=== PATIENT | female | born 1960 | race Caucasian/White ===

== ENCOUNTER 2023-08-27 12:48 | Emergency (ER) | payer OTHER, SELFPAY ==
[2023-08-27 12:50] VITALS: BP 163/65
[2023-08-27 13:13] LABS: % Basophils 0.8 % (0-2); % Eosinophils 2.6 % (0-6); % Immature Granulocytes 0.4 % (0-0.5); % Lymphocytes 29.2 % (20.5-51.1); % Monocytes 7.9 % (1.7-9.3); % Neutrophils 59.1 % (42.2-75.2); Absolute Basophils 0.1 10^3/uL (0-0.2); Absolute Eosinophils 0.2 10^3/uL (0-0.7); Absolute Lymphocytes 2.3 10^3/uL (1.2-3.4); Absolute Monocytes 0.6 10^3/uL (0.1-0.6); Absolute Neutrophils 4.7 10^3/uL (1.4-6.5); Hematocrit 41.2 % (37.0-47.0); Hemoglobin 14.2 g/dL (12.0-16.0); Mean Corp Hgb Conc. 34.5 g/dL (33.0-37.0); Mean Corpuscular Hgb 29.3 pg (27.0-31.0); Mean Corpuscular Volume 84.9 fL (81.0-99.0); Mean Platelet Volume 8.7 fL (7.4-10.4); Nucleated Red Blood Cells % 0 %; Platelet Count 391 10^3/uL (130-400); Red Blood Cell Count 4.85 10^6/uL (4.20-5.40); Red Cell Dist. Width 12.5 % (11.5-14.5)
[2023-08-27 13:30] LABS: ALT (SGPT) 34 U/L (0-35); AST (SGOT) 27 U/L (14-36); Albumin 4.6 g/dl (3.5-5.0); Alkaline Phosphatase 100 U/L (38-126); Blood Urea Nitrogen 21 mg/dl (7-17); Calcium 10.6 mg/dl (8.4-10.2); Carbon Dioxide 28 mmol/L (22-30); Chloride 103 mmol/L (98-107); Glucose 85 mg/dl (70-99); Lipase 120 U/L (23-300); Potassium 4.7 mmol/L (3.5-5.1); Sodium 137 mmol/L (135-145); Total Bilirubin 0.6 mg/dl (0.2-1.3); eGFR > 60.00
[2023-08-27] MEDS: NSS 1000 IV (16:29)
[2023-08-27 16:30] VITALS: BMI 29.0
--- NOTE | 2023-08-27 16:46 | ED.GENMED ---
History of Present Illness
General
Chief Complaint: Abdominal Symptoms
Time Seen by Provider: 08/27/23 15:36
Travel History
Have you had any contact with someone who has COVID-19?: No
Do you have any symptoms of coronavirus? Fever > 100 degrees, chills, cough, shortness of breath, sore throat, loss of taste or smell, muscle aches, or headache?: No
History of Present Illness
History of Present Illness:
62-year-old female presents the emergency department for evaluation of persistent diarrhea for the past 4 days. She notes that she had nausea and vomiting for the first 1 to 2 days of symptoms but this is resolved. She is began to feel dizzy and
lightheaded. Denies any antibiotic usage in the past 90 days. Currently denies any abdominal pain, chest pain, or fevers. No ill contacts at home.
Past History
Past History
ED Past Medical History: HTN, Hypercholesterolemia and NIDDM
ED Past Surgical History:
Review of Systems
Review of Systems
Allergies reviewed?: Yes
All Other Systems: ROS reviewed and negative except as documented in HPI and ROS
Phy Exam
Physical Exam
Physical Exam:
GEN: Well appearing, NAD, WDWN
HEENT: Oral mucosa moist, no scleral icterus
Cardiac: Regular rate
Lung: No respiratory distress, no tachypnea
Abdomen: Soft, nontender, no rigidity
MSK: No gross deformity or injuries
Skin: Good color, no pallor or jaundice, no rashes
Neuro: AO x3, moves all extremities freely
Psych: Calm, cooperative
Course
Orders/Labs/Results
Orders:
Orders
08/27/23 13:04
Complete Blood Count/With Diff Urgent
Comprehensive Metabolic Panel Urgent
Lipase Urgent
08/27/23 16:16
0.9% Sodium Chloride 1000 ml [Nss] 1,000 ml IV BOLUS
Abnormal Lab Results
08/27/23
13:04
BUN 21 H mg/dl
(7-17)
Creatinine 0.5 L mg/dL
(0.6-1.0)
Calcium 10.6 H mg/dl
(8.4-10.2)
08/27/23 13:04
08/27/23 13:04
Vital Signs
Initial and Last Documented VS:
Initial Vital Signs
Temp Pulse Resp BP Pulse Ox
98.4 F 56 18 163/65 100
08/27/23 12:50 08/27/23 12:50 08/27/23 12:50 08/27/23 12:50 08/27/23 12:50
Last Documented Vital Signs
Temp Pulse Resp BP Pulse Ox
98.0 F 66 20 152/74 99
08/27/23 18:43 08/27/23 18:43 08/27/23 18:43 08/27/23 18:43 08/27/23 18:43
MDM/Problems Addressed
MDM/Problems Addressed:
61-year-old female presenting with persistent diarrhea. Her labs are reassuring and there are no electrolyte derangements. She was given 1 L normal saline in the emergency department with improvement in dizziness. She was unable to provide a
stool specimen for sampling, ultimately do not feel this is prudent at this time given duration of symptoms less than 1 week.
*Critical Care Note
Total Time (30-74mins, 75-104mins- exclusive of procedures): Not Applicable
ED Attending Note
-
Portions of this chart may have been created with voice recognition software.� Occasional wrong word or��sound alike� substitutions may have occurred due to the inherent limitations of voice recognition software.
Discharge Plan
Departure
Patient Disposition: Home (Routine Discharge)
Date of Disposition: 08/27/23
Time of Disposition: 17:39
Patient with high blood pressure during this ER visit?: No
Discharge Problem:
Gastroenteritis
Instructions: Viral gastroenteritis in adults
Prescriptions:
No Action
atorvastatin 40 MG tablet
40 mg PO QPM
magnesium oxide [MagOx] 400 MG tablet
400 mg PO DAILY
lisinopril [Zestril] 40 MG tablet
40 mg PO DAILY
metformin 500 MG tablet extended release 24 hr
1,000 mg PO BID
glipizide 5 MG tablet
5 mg PO DAILY
metoprolol tartrate 25 MG tablet
25 mg PO BID
biotin 10,000 mcg Capsule
10,000 mcg PO DAILY
Ozempic 0.25 mg or 0.5 mg (2 mg/3 mL) Pen Injector
0.5 mg SC MO
acetaminophen [Tylenol] 325 mg Tablet
650 mg PO Q4H PRN (Reason: moderate pain)
potassium citrate 15 mEq Tablet Extended Release
1,620 mg PO BID
tamsulosin [Flomax] 0.4 mg Capsule
0.4 mg PO DAILY Qty: 7 0RF
ondansetron 4 mg Tablet,Disintegrating
4 mg PO TIDPRN PRN (Reason: nausea/vomiting) Qty: 12 0RF
Referrals:
Erick Castrejon DO [Family Provider] -
Activity Restrictions/Additional Instructions:
If your diarrhea continues to worsen for greater than 1 week, stool testing for pathogens would be indicated. Your primary care physician can order these
Be sure to increase your oral fluid intake
We recommend a brat diet which includes bananas, rice, applesauce, and toast.
Interventions
Interventions:
*Risk Screen - Suicide Last Done: 08/27/23 12:50
*General Assessment Last Done: 08/27/23 12:50
*Neglect/Abuse Screening Last Done: 08/27/23 12:50
ED- Fall Risk Assessment Last Done: 08/27/23 18:36
*ED COVID-19 Vaccine History Last Done: 08/27/23 12:50
*Nursing Disposition Last Done: 08/27/23 18:43
VD-Xtmfwx-Nkncrzxvdk Assessment Last Done: 08/27/23 18:34
Discharge Date and Time
Discharge Date/Time: 08/27/23 18:47
Print Language: ITALIAN
[2023-08-27 18:43] VITALS: BP 152/74
== END 2023-08-27 18:47 | disposition home or self-care (01) ==
LOC: EMR 12:48
PROVIDERS: Emergency Medicine; EMERGENCY PHYSICIAN Emergency Medicine; FAMILY PHYSICIAN Family Medicine
DX: K52.9 Noninfective gastroenteritis and colitis, unspecified (principal); I10 Essential (primary) hypertension
CPT/HCPCS: 99284; 96360; 80053; 83690; 85025

== ENCOUNTER → 2023-11-22 12:13 | Outpatient (REF) | payer OTHER, SELFPAY | LOC: RAD 12:13 | PROVIDERS: ATTENDING PHYSICIAN Family Medicine | DX: Z78.0 Asymptomatic menopausal state (principal); Z00.00 Encounter for general adult medical examination without abnormal findings; R05.9 Cough, unspecified; M25.551 Pain in right hip; R10.2 Pelvic and perineal pain | CPT/HCPCS: 71046; 72100; 72170; 73502; 77080 ==

== ENCOUNTER → 2023-12-16 08:31 | Outpatient (REF) | payer OTHER, SELFPAY | LOC: RAD 08:31 | PROVIDERS: ATTENDING PHYSICIAN Internal Medicine Gastroenterology; FAMILY PHYSICIAN Family Medicine | DX: R94.5 Abnormal results of liver function studies (principal) | CPT/HCPCS: 76700 ==

== ENCOUNTER 2024-12-07 22:06 | Emergency (ER) | payer OTHER, SELFPAY ==
[2024-12-07 22:08] VITALS: BP 174/96
--- NOTE | 2024-12-07 22:35 | ED.GENMED ---
History of Present Illness
General
Chief Complaint: Flank Pain
Source: patient and family
Exam Limitations: none
Time Seen by Provider: 12/07/24 22:21
Nursing documentation reviewed up to this point in time: agreed with
History of Present Illness
History of Present Illness:
Patient with history of kidney stones, presents to ED secondary to recurrent right flank pain with vomiting, and approxi-1 hour prior to arrival. Denies fever or chills. Denies trauma. Denies diarrhea. Denies difficulty with urination. Patient
states that her last episode of kidney stone was approximately 2 years ago, requiring lithotripsy.
Past History
Past History
ED Past Medical History: HTN, Hypercholesterolemia and NIDDM
ED Past Surgical History:
Review of Systems
Review of Systems
Allergies reviewed?: Yes
All Other Systems: ROS reviewed and negative except as documented in HPI and ROS
Constitutional: Reports no symptoms; Denies fever
ABD/GI: Reports nausea and vomiting; Denies abdominal pain or diarrhea
: Reports flank pain; Denies difficulty voiding
Musculoskeletal: Reports no symptoms
Skin: Reports no symptoms
Neurological: Reports no symptoms
Phy Exam
Physical Exam
Physical Exam:
Physical Exam
General: moderate painful distress, not acutely ill. afebrile
Head: nc/at. eomi
Neck: supple. normal range of motion
Abdomen: normal bowel sounds. not tender.
Neuro: alert and oriented x 3. no focal neurological deficits
Skin: no rash
Psychiatric: well kept. interactive and cooperative
Extremities: no edema. no calf tenderness.
Course
Orders/Labs/Results
Orders:
Orders
12/07/24 22:35
0.9% Sodium Chloride 500 ml [Nss] 500 ml IV BOLUS
HYDROmorphone [Dilaudid] 0.5 mg IV NOW STA
Ketorolac [Toradol] 15 mg IV NOW STA
Ondansetron Injectable [Zofran] 4 mg IV NOW STA
12/07/24 22:36
CT Abd/pel Without Iv Or Oral Urgent
Comment:
Reason For Exam: right flank pain
12/07/24 22:47
Basic Metabolic Panel Urgent
Complete Blood Count/With Diff Urgent
12/08/24 00:44
HYDROmorphone [Dilaudid] 0.5 mg .ROUTE .STK-MED ONE
12/08/24 00:46
HYDROmorphone [Dilaudid] 0.5 mg IV NOW STA
Abnormal Lab Results
12/07/24
22:47
Absolute Monos (auto) 0.7 H 10^3/uL
(0.1-0.6)
BUN 18 H mg/dl
(7-17)
Glucose 164 H mg/dl
(70-99)
12/07/24 22:47
12/07/24 22:47
Vital Signs
Initial and Last Documented VS:
Initial Vital Signs
Temp Pulse Resp BP Pulse Ox
98.2 F 69 20 174/96 97
12/07/24 22:08 12/07/24 22:08 12/07/24 22:08 12/07/24 22:08 12/07/24 22:08
Last Documented Vital Signs
Temp Pulse Resp BP Pulse Ox
98.2 F 60 16 138/56 95
12/07/24 22:08 12/08/24 00:45 12/07/24 23:25 12/08/24 00:00 12/08/24 00:45
MDM/Problems Addressed
MDM/Problems Addressed:
Patient reports significant improvement in symptoms after treatment.
CT report reviewed and discussed with patient and family. History and exam consistent with obstructing renal stone. Fortunately, patient remains afebrile, hemodynamically stable, nontoxic-appearing. Patient will be discharged home with pain
medication along with urine strainer, along with recommendation to follow-up with her primary urologist, Dr. Dr. Shah. Advised to return to ED with worsening symptoms, i.e. fever/worsening pain/inability urinate. Patient expresses understanding
at time of discharge.
*Pulse Oximetry
SaO2: 97
Oxygen Mode of Delivery: Room air
Patient hypoxic: no
*Critical Care Note
Total Time (30-74mins, 75-104mins- exclusive of procedures): Not Applicable
ED Attending Note
-
Portions of this chart may have been created with voice recognition software.� Occasional wrong word or��sound alike� substitutions may have occurred due to the inherent limitations of voice recognition software.
Discharge Plan
Departure
Patient Disposition: Home (Routine Discharge)
Date of Disposition: 12/08/24
Time of Disposition: 00:41
Patient with high blood pressure during this ER visit?: Yes
Condition: Fair
Discharge Problem:
Renal colic
Instructions: Renal Colic (DC), How to Strain Your Urine
Prescriptions:
New
oxycodone-acetaminophen [Percocet] 5-325 mg Tablet
1 tab PO Q6HPRN PRN (Reason: pain) Qty: 12 0RF
tamsulosin [Flomax] 0.4 mg Capsule
0.4 mg PO DAILY Qty: 7 0RF
ondansetron 4 mg Tablet,Disintegrating
4 mg PO TIDPRN PRN (Reason: nausea/vomiting) Qty: 12 0RF
No Action
atorvastatin 40 MG tablet
40 mg PO QPM
magnesium oxide [MagOx] 400 MG tablet
400 mg PO DAILY
lisinopril [Zestril] 40 MG tablet
40 mg PO DAILY
metformin 500 MG tablet extended release 24 hr
1,000 mg PO BID
glipizide 5 MG tablet
5 mg PO DAILY
metoprolol tartrate 25 MG tablet
25 mg PO BID
biotin 10,000 mcg Capsule
10,000 mcg PO DAILY
Ozempic 0.25 mg or 0.5 mg (2 mg/3 mL) Pen Injector
0.5 mg SC MO
acetaminophen [Tylenol] 325 mg Tablet
650 mg PO Q4H PRN (Reason: moderate pain)
potassium citrate 15 mEq Tablet Extended Release
1,620 mg PO BID
tamsulosin [Flomax] 0.4 mg Capsule
0.4 mg PO DAILY Qty: 7 0RF
ondansetron 4 mg Tablet,Disintegrating
4 mg PO TIDPRN PRN (Reason: nausea/vomiting) Qty: 12 0RF
Referrals:
Erick Castrejon DO [Family Provider, Family Practice]
Lauro Shah MD [Active, Urology]
Activity Restrictions/Additional Instructions:
As discussed, please follow-up with your urologist for further evaluation and treatment. Please return to ED with worsening symptoms, i.e. fever/worsening pain/inability to urinate. Your prescriptions have been [facility] electronically [facility]
pharmacy in [place].
Interventions
Interventions:
*Risk Screen - Suicide Last Done: 12/07/24 22:08
*General Assessment Last Done: 12/07/24 22:08
*Neglect/Abuse Screening Last Done: 12/07/24 22:08
*ED- Fall Risk Assessment Last Done: 12/07/24 23:10
*ED COVID-19 Vaccine History Last Done: 12/07/24 22:08
*Nursing Disposition Last Done: 12/08/24 01:04
TR-Zeurew-Pwqzythnos Assessment Last Done: 12/07/24 22:51
ED-Female Genitourinary Assessment Last Done: 12/07/24 22:51
Discharge Date and Time
Discharge Date/Time: 12/08/24 01:04
Print Language: MACEDONIAN
[2024-12-07] MEDS: NSS 500 IV (22:45)
[2024-12-07] MEDS: ZOFRAN 4 MG IV (22:46)
[2024-12-07] MEDS: TORADOL 15 MG IV (22:46)
[2024-12-07] MEDS: DILAUDID 0.5 MG IV (22:47)
[2024-12-07 22:49] VITALS: BP 170/60
[2024-12-07 22:50] VITALS: BMI 26.1
[2024-12-07 23:22] VITALS: BP 172/63
[2024-12-07 23:25] VITALS: BP 172/63
[2024-12-07 23:33] LABS: Hematocrit 39.3 % (37.0-47.0); Hemoglobin 13.3 g/dL (12.0-16.0); Mean Corp Hgb Conc. 33.8 g/dL (33.0-37.0); Mean Corpuscular Volume 85.4 fL (81.0-99.0); Nucleated Red Blood Cells % 0 %; Platelet Count 335 10^3/uL (130-400); Red Cell Dist. Width 12.4 % (11.5-14.5)
[2024-12-08] VITALS: BP 138/56
[2024-12-08 00:04] LABS: Blood Urea Nitrogen 18 mg/dl (7-17); Calcium 10.0 mg/dl (8.4-10.2); Carbon Dioxide 26 mmol/L (22-30); Chloride 106 mmol/L (98-107); Estimated Creatinine Clearance 68 ml/min; Glucose 164 mg/dl (70-99); Potassium 4.9 mmol/L (3.5-5.1); Sodium 140 mmol/L (135-145); eGFR > 60.00
[2024-12-08] MEDS: DILAUDID 0.5 MG IV (00:47)
== END 2024-12-08 01:04 | disposition home or self-care (01) ==
LOC: EMR 22:06
PROVIDERS: EMERGENCY PHYSICIAN Emergency Medicine; FAMILY PHYSICIAN Family Medicine
DX: N13.2 Hydronephrosis with renal and ureteral calculous obstruction (principal); I10 Essential (primary) hypertension; E11.9 Type 2 diabetes mellitus without complications; E78.00 Pure hypercholesterolemia, unspecified; Z87.442 Personal history of urinary calculi
CPT/HCPCS: 99284; 96374; 96375; 96376; 96361; 74176; 80048; 85025

== ENCOUNTER 2025-01-25 15:17 | Emergency (ER) | payer OTHER, SELFPAY ==
[2025-01-25 15:25] VITALS: BP 129/62
[2025-01-25 15:46] VITALS: BMI 26.6
[2025-01-25 15:47] VITALS: BP 121/59
[2025-01-25 15:55] LABS: Urine Character Clear (Clear)
[2025-01-25 16:47] LABS: Hematocrit 42.0 % (37.0-47.0); Hemoglobin 14.0 g/dL (12.0-16.0); Mean Corp Hgb Conc. 33.3 g/dL (33.0-37.0); Mean Corpuscular Volume 85.5 fL (81.0-99.0); Nucleated Red Blood Cells % 0 %; Platelet Count 408 10^3/uL (130-400); Red Cell Dist. Width 12.4 % (11.5-14.5)
[2025-01-25 17:02] VITALS: BP 107/56
[2025-01-25 17:02] LABS: ALT (SGPT) 30 U/L (0-35); AST (SGOT) 25 U/L (14-36); Albumin 4.8 g/dl (3.5-5.0); Alkaline Phosphatase 102 U/L (38-126); Blood Urea Nitrogen 27 mg/dl (7-17); Calcium 10.9 mg/dl (8.4-10.2); Carbon Dioxide 27 mmol/L (22-30); Chloride 102 mmol/L (98-107); Estimated Creatinine Clearance 66 ml/min; Glucose 89 mg/dl (70-99); Lipase 194 U/L (23-300); Potassium 5.2 mmol/L (3.5-5.1); Sodium 138 mmol/L (135-145); Total Protein 7.4 g/dl (6.3-8.2); eGFR > 60.00
[2025-01-25 17:13] LABS: Troponin I < 0.012 ng/ml
--- NOTE | 2025-01-25 17:14 | ED.GENMED ---
History of Present Illness
<Mackenzie Villa LIFE SPECIALIST - Last Filed: 01/25/25 18:27>
General
Chief Complaint: Fatigue
Source: patient
Exam Limitations: none
Time Seen by Provider: 01/25/25 16:08
Nursing documentation reviewed up to this point in time: agreed with
History of Present Illness
History of Present Illness:
64 yo female with h/o diabetic neuropathy, degenerative disc disease, HTN, HLD, GERD, kidney stones, NIDDM, anxiety has been on Ozempic for 3 years at 0.5 mg and was increased to 1.0 mg 4 weeks ago presents with:
Nausea off and on for the past 2 weeks during the day
Diarrhea 3 times a week for past 2 weeks
Abdominal pain which is around her bellybutton at times and in her lower abdomen at other times which is worse at night. Occasional abdominal bloating where 'it sticks out' Sometimes eating relieves symptoms, sometimes makes them
worse.
Mid to upper bilateral back pain at night for the past 2 weeks. Does not coincide with abdominal symptoms. Describes the back pain as a 'freezing tightening' 2 times a day and it resolves after she sits and rests and does some stretching exercises.
Also has 'extreme fatigue' 'so overwhelming I can't function.'
She saw her GI Dr. Her at [facility] 2 weeks ago and has f/u appt in March. She was told it might be the Ozempic. She has Zofran at home which helps her nausea.
She called her PCP Dr. Castrejon who could see her Tuesday (3 days) but she did not want to wait.
Past History
<Mackenzie Villa LIFE SPECIALIST - Last Filed: 01/25/25 18:27>
Past History
ED Past Medical History: GERD, HTN, Hypercholesterolemia and NIDDM
ED Past Surgical History: Bowel resection, , Gynecological and Urological (Stent for kidney stones)
Social History
Tobacco: Non-smoker
Alcohol: None
Personal:
Living: with family
Review of Systems
<Mackenzie Villa, LIFE SPECIALIST - Last Filed: 01/25/25 18:27>
Review of Systems
Allergies reviewed?: Yes
All Other Systems: ROS reviewed and negative except as documented in HPI and ROS
Constitutional: Reports fatigue; Denies fever or chills
EENT: Denies sore throat
Respiratory: Denies cough or trouble breathing
Cardiac: Denies chest pain or syncope
ABD/GI: Reports abdominal pain, nausea and diarrhea; Denies vomiting, constipated, bloody stools or black stools
: Denies dysuria, frequency or difficulty voiding
Musculoskeletal: Reports back pain (Mid to upper back pain)
Skin: Reports no symptoms
Neurological: Reports no symptoms
Phy Exam
<Mackenzie Villa, LIFE SPECIALIST - Last Filed: 01/25/25 18:27>
Physical Exam
Physical Exam:
GENERAL: No acute distress. A&Ox3.
CONSTITUTIONAL: Afebrile.
EYES: clear, conjunctivae normal
ENMT: moist mucus membranes, Pharynx nl
RESPIRATORY: Regular respirations, nonlabored, lungs clear.
CARDIOVASCULAR: Regular rate and rhythm, no murmurs, no rubs.
GI: Soft, nondistended, nontender, normal BS
MUSCULOSKELETAL: Moves with ease. Well perfused.
SKIN: Warm, dry, pink
PSYCH: Normal mood and affect. Well kept, interactive and appropriate
NEUROLOGIC: Awake, alert and oriented. No focal neurological deficits
Course
<Mackenzie Villa, LIFE SPECIALIST - Last Filed: 01/25/25 18:27>
Orders/Labs/Results
Orders:
Orders
01/25/25 15:29
Electrocardiogram (*1) Urgent
Reason for Study: Fatigue / Weakness
EKG- Treatment ONCE
01/25/25 15:36
Urinalysis Reflex To Culture Urgent
Date Specimen was Collected: 01/25/25
Time Specimen was Collected: 15:31
Urine Microscopic Reflex Cult Urgent
Urine Culture Urgent
CELSA Source: U
Specimen Description:
Date Specimen was Collected: 01/25/25
Time Specimen was Collected: 15:31
01/25/25 16:27
CT Abd/pelvis W Iv Cont Urgent
Comment:
Reason For Exam: abd pain, on Ozempic
01/25/25 16:39
CBC/With Diff [Complete Blood Count/With Diff] Urgent
Comprehensive Metabolic Panel Urgent
Lipase Urgent
Troponin I Urgent
01/25/25 17:15
0.9% Sodium Chloride 1000 ml [Nss] 1,000 ml IV BOLUS
01/25/25 17:35
COVID-19 Antigen Urgent
Source: Nasal Swab
Abnormal Lab Results
01/25/25 01/25/25
15:36 16:39
Plt Count 408 H 10^3/uL
(130-400)
Absolute Neuts (auto) 7.4 H 10^3/uL
(1.4-6.5)
Absolute Monos (auto) 0.7 H 10^3/uL
(0.1-0.6)
Potassium 5.2 H mmol/L
(3.5-5.1)
BUN 27 H mg/dl
(7-17)
Calcium 10.9 H mg/dl
(8.4-10.2)
Ur Occult Blood Reflex 1+ A
(Negative)
Leukocyte Esterase Rfl 3+ A
(Negative)
Urine WBC (Reflex) 50-60 A /HPF
(0-5)
Urine Bacteria (Reflex) Moderate A
(Negative)
Urine Albumin (Reflex) 2+ A
(Neg - Trace)
01/25/25 16:39
01/25/25 16:39
Vital Signs
Initial and Last Documented VS:
Initial Vital Signs
Temp Pulse Resp BP Pulse Ox
97.8 F 69 16 129/62 99
01/25/25 15:25 01/25/25 15:25 01/25/25 15:25 01/25/25 15:25 01/25/25 15:25
Last Documented Vital Signs
Temp Pulse Resp BP Pulse Ox
97.8 F 64 15 135/58 97
01/25/25 15:25 01/25/25 18:30 01/25/25 18:30 01/25/25 18:00 01/25/25 17:15
<Camron Orta PA-C - Last Filed: 01/25/25 19:00>
Orders/Labs/Results
Orders:
Orders
01/25/25 15:29
Electrocardiogram (*1) Urgent
Reason for Study: Fatigue / Weakness
EKG- Treatment ONCE
01/25/25 15:36
Urinalysis Reflex To Culture Urgent
Date Specimen was Collected: 01/25/25
Time Specimen was Collected: 15:31
Urine Microscopic Reflex Cult Urgent
Urine Culture Urgent
CELSA Source: U
Specimen Description:
Date Specimen was Collected: 01/25/25
Time Specimen was Collected: 15:31
01/25/25 16:27
CT Abd/pelvis W Iv Cont Urgent
Comment:
Reason For Exam: abd pain, on Ozempic
01/25/25 16:39
CBC/With Diff [Complete Blood Count/With Diff] Urgent
Comprehensive Metabolic Panel Urgent
Lipase Urgent
Troponin I Urgent
01/25/25 17:15
0.9% Sodium Chloride 1000 ml [Nss] 1,000 ml IV BOLUS
01/25/25 17:35
COVID-19 Antigen Urgent
Source: Nasal Swab
Abnormal Lab Results
01/25/25 01/25/25
15:36 16:39
Plt Count 408 H 10^3/uL
(130-400)
Absolute Neuts (auto) 7.4 H 10^3/uL
(1.4-6.5)
Absolute Monos (auto) 0.7 H 10^3/uL
(0.1-0.6)
Potassium 5.2 H mmol/L
(3.5-5.1)
BUN 27 H mg/dl
(7-17)
Calcium 10.9 H mg/dl
(8.4-10.2)
Ur Occult Blood Reflex 1+ A
(Negative)
Leukocyte Esterase Rfl 3+ A
(Negative)
Urine WBC (Reflex) 50-60 A /HPF
(0-5)
Urine Bacteria (Reflex) Moderate A
(Negative)
Urine Albumin (Reflex) 2+ A
(Neg - Trace)
01/25/25 16:39
01/25/25 16:39
Vital Signs
Initial and Last Documented VS:
Initial Vital Signs
Temp Pulse Resp BP Pulse Ox
97.8 F 69 16 129/62 99
01/25/25 15:25 01/25/25 15:25 01/25/25 15:25 01/25/25 15:25 01/25/25 15:25
Last Documented Vital Signs
Temp Pulse Resp BP Pulse Ox
97.8 F 64 15 135/58 97
01/25/25 15:25 01/25/25 18:30 01/25/25 18:30 01/25/25 18:00 01/25/25 17:15
<Mackenzie Huggins Day, LIFE SPECIALIST - Last Filed: 01/25/25 18:27>
MDM/Problems Addressed
Differential Diagnosis Includes:
Side effect from Ozempic, dehydration, COVID, UTI
MDM/Problems Addressed:
64 yo female with h/o diabetic neuropathy, degenerative disc disease, HTN, HLD, GERD, kidney stones, NIDDM, anxiety has been on Ozempic for 3 years at 0.5 mg and was increased to 1.0 mg 4 weeks ago presents with:
Nausea off and on for the past 2 weeks during the day
Diarrhea 3 times a week for past 2 weeks
Abdominal pain which is around her bellybutton at times and in her lower abdomen at other times which is worse at night. Occasional abdominal bloating where 'it sticks out' Sometimes eating relieves symptoms, sometimes makes them
worse.
Mid to upper bilateral back pain at night for the past 2 weeks. Does not coincide with abdominal symptoms. Describes the back pain as a 'freezing tightening' 2 times a day and it resolves after she sits and rests and does some stretching exercises.
EKG NSR
She saw her GI Dr. Her at [facility] 2 weeks ago and has f/u appt in March. She was told it might be the Ozempic. She has Zofran at home which helps her nausea.
She called her PCP Dr. Castrejon who could see her Tuesday (3 days) but she did not want to wait.
5:30 PM:
CBC with no clinically significant
CMP: No clinically significant abnormality. IV fluids infusing for mild dehydration with a BUN of 27
Troponin WNL
UA: +1 blood, 3+ leukocytes, 50-60 WBCs greater than 30 squames, moderate bacteria, urine culture pending. Patient states she sees Dr. Shah, urology and states she always has white blood cells in her urine
6:30 p.m.
Covid neg
Discussed all finding so far with pt who expresses relief at negative workup so far
Case discussed with Perez Orta who will assume care from this point. CT abd/pelvis result pending.
<Mackenzie Villa LIFE SPECIALIST - Last Filed: 01/25/25 18:27>
*Pulse Oximetry
SaO2: 99
Oxygen Mode of Delivery: Room air
*EKG
EKG Intrepretation Date: 01/25/25
Interpretation: normal
Heart Rate: 65
Rate: normal
Rhythm: sinus
Mondamin: normal axis
Interval: normal interval
QRS Pattern: normal QRS
Ischemia: no ischemia
<Camron Orta PA-C - Last Filed: 01/25/25 19:00>
*Pulse Oximetry
Patient hypoxic: no
*Critical Care Note
Total Time (30-74mins, 75-104mins- exclusive of procedures): Not Applicable
<Camron Orta PA-C - Last Filed: 01/25/25 19:00>
Update Note
Update Note:
Received care of patient upon signout pending abdominal CT. Abdominal CT was reviewed and demonstrates mild distention of the proximal right ureter without evidence ureteral calculus or perinephric stranding. There are intrarenal calculi however.
No other acute finding noted in the abdomen. Patient be stable for discharge with follow-up with family doctor and discuss current dose of her peptide medications to take
ED Attending Note
<Mackenzie Villa LIFE SPECIALIST - Last Filed: 01/25/25 18:27>
-
Portions of this chart may have been created with voice recognition software.� Occasional wrong word or��sound alike� substitutions may have occurred due to the inherent limitations of voice recognition software.
Discharge Plan
Departure
Patient Disposition: Home (Routine Discharge)
Date of Disposition: 01/25/25
Time of Disposition: 18:51
Patient with high blood pressure during this ER visit?: No
Condition: Good
Discharge Problem:
Abdominal pain, Fatigue, Upper back pain
Instructions: Fatigue (DC), Exercises for Upper Back Pain, Abdominal Pain, Musculoskeletal Pain
Prescriptions:
No Action
atorvastatin 40 MG tablet
40 mg PO QPM
magnesium oxide [MagOx] 400 MG tablet
400 mg PO DAILY
lisinopril [Zestril] 40 MG tablet
40 mg PO DAILY
metformin 500 MG tablet extended release 24 hr
1,000 mg PO BID
glipizide 5 MG tablet
5 mg PO DAILY
metoprolol tartrate 25 MG tablet
25 mg PO BID
biotin 10,000 mcg Capsule
10,000 mcg PO DAILY
Ozempic 0.25 mg or 0.5 mg (2 mg/3 mL) Pen Injector
0.5 mg SC MO
acetaminophen [Tylenol] 325 mg Tablet
650 mg PO Q4H PRN (Reason: moderate pain)
potassium citrate 15 mEq Tablet Extended Release
1,620 mg PO BID
tamsulosin [Flomax] 0.4 mg Capsule
0.4 mg PO DAILY Qty: 7 0RF
ondansetron 4 mg Tablet,Disintegrating
4 mg PO TIDPRN PRN (Reason: nausea/vomiting) Qty: 12 0RF
oxycodone-acetaminophen [Percocet] 5-325 mg Tablet
1 tab PO Q6HPRN PRN (Reason: pain) Qty: 12 0RF
tamsulosin [Flomax] 0.4 mg Capsule
0.4 mg PO DAILY Qty: 7 0RF
ondansetron 4 mg Tablet,Disintegrating
4 mg PO TIDPRN PRN (Reason: nausea/vomiting) Qty: 12 0RF
Referrals:
Dr. Erick Castrejon Do, [Other]
Erick Castrejon DO [Family Provider, Family Practice] - Call in 1-3 days for appt
Activity Restrictions/Additional Instructions:
As we discussed, nothing worrisome in your workup here today. You were mildly dehydrated and you received IV fluids. Drink plenty of fluids.
See your family doctor next week if you are feeling no better by then
You may take Tylenol for your upper back pain, That sounds like muscular pain. Heating pad or warm moist compresses may help
Interventions
Interventions:
*Risk Screen - Suicide Last Done: 01/25/25 15:25
*General Assessment Last Done: 01/25/25 15:46
*Neglect/Abuse Screening Last Done: 01/25/25 15:46
*ED- Fall Risk Assessment Last Done: 01/25/25 15:25
*ED COVID-19 Vaccine History Last Done: 01/25/25 15:46
*ED Influenza Vaccine History Last Done: 01/25/25 15:46
Discharge Date and Time
Print Language: UGANDAN
[2025-01-25] MEDS: NSS 1000 IV (17:37)
[2025-01-25 17:46] LABS: Urine Squamous Cell >30 /LPF (Few)
[2025-01-25 17:47] LABS: Urine Red Blood Cell 0-2 /HPF (0-2); Urine White Cell 50-60 /HPF (0-5)
[2025-01-25 18:00] VITALS: BP 135/58
[2025-01-25 18:20] LABS: COVID-19 Antigen Negative (Negative)
[2025-01-25 19:00] VITALS: BP 142/64
== END 2025-01-25 19:12 | disposition home or self-care (01) ==
LOC: EMR 15:17
PROVIDERS: Emergency Medicine; Registered Nurse; EMERGENCY PHYSICIAN Emergency Medicine; FAMILY PHYSICIAN Family Medicine
DX: R10.9 Unspecified abdominal pain (principal); R53.83 Other fatigue; M54.6 Pain in thoracic spine; E11.40 Type 2 diabetes mellitus with diabetic neuropathy, unspecified; I10 Essential (primary) hypertension; E78.00 Pure hypercholesterolemia, unspecified; Z79.85 Long-term (current) use of injectable non-insulin antidiabetic drugs; Z87.442 Personal history of urinary calculi; Z90.49 Acquired absence of other specified parts of digestive tract; Z90.710 Acquired absence of both cervix and uterus
CPT/HCPCS: 99284; 96360; 74177; 80053; 81003; 81015; 83690; 84484; 85025; 87086; 87811; 93005; Q9967

== ENCOUNTER → 2025-04-12 13:43 | Outpatient (REF) | payer OTHER, SELFPAY | LOC: HWRCS 13:43 | PROVIDERS: ATTENDING PHYSICIAN Internal Medicine Cardiovascular Disease; FAMILY PHYSICIAN Family Medicine | DX: I10 Essential (primary) hypertension (principal); R00.2 Palpitations; R94.31 Abnormal electrocardiogram [ECG] [EKG] | CPT/HCPCS: 93306 ==